=== PATIENT | female | born 1985 | race Caucasian/White ===

== ENCOUNTER 2016-11-05 13:34 | Emergency (ER) | payer MEDICAID, OTHER ==
[2016-11-05 13:47] VITALS: BP 135/69
--- NOTE | 2016-11-05 14:03 | UC ---
Cardiac HPI - HPI Summary HPI Summary: after beginning hydroxycut patient began sensation of heart beating fast in addition she drinks a few cups of coffee and a few energy drinks daily - History of Current Complaint Chief Complaint: UCChestPain Stated Complaint: CHEST PAIN Time Seen by Provider: 11/05/16 13:55 Hx Obtained From: Patient Hx Last Menstrual Period: Depo provera, quit depo a month ago. Hasn't had a period yet Onset/Duration: Sudden Onset, Lasting Days - 2 Timing: Intermittent Episodes Lasting: Initial Severity: Mild Current Severity: Mild Chest Pain Location: Diffuse - chest---no pain just feeling of heart beating fast Character: Fast, Pounding Aggravating Factor(s): Caffeine Alleviating Factor(s): Nothing Associated Signs & Symptoms: Positive: Negative - Allergy/Home Medications Allergies/Adverse Reactions: Allergies Allergy/AdvReac Type Severity Reaction Status Date / Time Codeine Allergy Itching Verified 11/05/16 13:47 Home Medications: Home Medications Aripiprazole Maintena (NF) [Abilify Maintena (NF)] 300 mg INJ MONTHLY 11/05/16 [ History Confirmed 11/05/16] PMH/Surg Hx/FS Hx/Imm Hx Previously Healthy: No Psychological History: Anxiety, Schizophrenia - Surgical History Surgical History: None - Family History Known Family History: Positive: Other - Schiziophrenia Negative: Respiratory Disease - Social History Occupation: Employed Full-time Lives: With Family Alcohol Use: None Substance Use Type: None, Excessive Caffeine Substance Use Comment - Amount & Last Used: history of marijuana use, energy drinks, coffee Smoking Status (MU): Light Every Day Tobacco Smoker Type: Cigarettes Length of Time of Smoking/Using Tobacco: off and on for 20 years Have You Smoked in the Last Year: Yes Household Exposure Type: Cigarettes - Immunization History Most Recent Influenza Vaccination: October, Most Recent Tetanus Shot: 2 years ago Most Recent Pneumonia Vaccination: none Review of Systems Constitutional: Negative Skin: Negative Eyes: Negative ENT: Negative Respiratory: Negative Cardiovascular: Palpitations Gastrointestinal: Negative Genitourinary: Negative Motor: Negative Neurovascular: Negative Musculoskeletal: Negative Neurological: Negative Psychological: Negative Is Patient Immunocompromised?: No All Other Systems Reviewed And Are Negative: Yes Physical Exam Triage Information Reviewed: Yes Appearance: Well-Appearing, No Pain Distress, Well-Nourished Vital Signs: Initial Vital Signs Temp 99.5 F 11/05/16 13:39 Pulse 85 11/05/16 13:39 Resp 18 11/05/16 13:39 BP 135/69 11/05/16 13:39 Pulse Ox 99 11/05/16 13:39 Vital Signs Reviewed: Yes Eye Exam: Normal Eyes: Positive: Conjunctiva Clear ENT Exam: Normal ENT: Positive: Normal ENT inspection, Hearing grossly normal. Negative: Nasal congestion, Nasal drainage, Trismus, Muffled/hoarse voice Dental Exam: Normal Neck exam: Normal Neck: Positive: Supple, Nontender, No Lymphadenopathy Respiratory Exam: Normal Respiratory: Positive: Chest non-tender, Lungs clear, Normal breath sounds, No respiratory distress, No accessory muscle use Cardiovascular Exam: Normal Cardiovascular: Positive: RRR, No Murmur, Pulses Normal, Brisk Capillary Refill Musculoskeletal Exam: Normal Musculoskeletal: Positive: Strength Intact, ROM Intact, No Edema Neurological Exam: Normal Neurological: Positive: Alert, Muscle Tone Normal Psychological Exam: Normal Skin Exam: Normal Diagnostics - EKG Cardiac Rate: NL Cardiac Rhythm: Sinus: Normal Ectopy: None ST Segment: Normal Re-Evaluation - Re-Evaluation First Eval Change: Improved - Symptoms calmed with reassurance - Assessment/Plan Course Of Treatment: Stop hydroxycut taper slowly off of caffiene, may use vistal prn follow with Dr. Carmona this week - Differential Diagnoses - Chest Pain Differential Diagnosis/HQI/PQRI: ACS, Angina, Chest Wall, Pulmonary Edema, Pulmonary Embolism, Other: - caffiene overdose - Clinical Impression Provider Diagnoses: Subjective tachycardia Discharge - Discharge Plan Condition: Stable Disposition: HOME Prescriptions: hydrOXYzine PAMOATE CAP* [Vistaril CAP*] 25 - 50 mg PO Q6H PRN #10 cap PRN Reason: Anxiety Patient Education Materials: Anxiety (ED), Tachycardia (ED) Referrals: Alberto Haji DO [Doctor of Osteopathy] - 3 Days
== END 2016-11-05 14:25 | disposition home or self-care (01) ==
LOC: UCEAST 13:34
DX: R00.0 Tachycardia, unspecified (principal); Z88.6 Allergy status to analgesic agent
CPT/HCPCS: 93005; 99212; G0463

== ENCOUNTER 2017-08-05 13:50 | Emergency (ER) | payer OTHER ==
[2017-08-05 14:08] VITALS: BP 117/68
--- NOTE | 2017-08-05 14:15 | UC ---
Abdominal Pain Female HPI - HPI Summary HPI Summary: 32 yo female presents with lower abdominal pain that began this morning. She vomited once this morning, but not since. Is eating and drinking ok, but does feel a little nauseous. No recent sick contacts that she knows of. Denies fever , chills, SOB, chest pain, diarrhea, constipation, dysuria, vaginal pain/ bleeding/discharge, or flank pain. - History of Current Complaint Hx Obtained From: Patient Hx Last Menstrual Period: 07/17/17 Onset/Duration: Sudden Onset Severity Initially: Mild Severity Currently: Mild Pain Intensity: 4 Pain Scale Used: 0-10 Numeric <Ankur Chin - Last Filed: 08/05/17 14:50> <Zeeshan Cardona - Last Filed: 08/06/17 07:27> - History of Current Complaint Chief Complaint: UCAbdominalPain Stated Complaint: ABDOMINAL PAIN Time Seen by Provider: 08/05/17 14:09 Allergies/Adverse Reactions: Allergies Allergy/AdvReac Type Severity Reaction Status Date / Time codeine Allergy Itching Verified 08/05/17 15:26 PMH/Surg Hx/FS Hx/Imm Hx Psychological History: Anxiety, Schizophrenia - Surgical History Surgical History: None - Family History Known Family History: Positive: Other - Schiziophrenia Negative: Respiratory Disease - Social History Lives: With Family Alcohol Use: None Substance Use Type: None Substance Use Comment - Amount & Last Used: history of marijuana use, energy drinks, coffee Smoking Status (MU): Light Every Day Tobacco Smoker Type: Cigarettes Amount Used/How Often: 5 sig/day Length of Time of Smoking/Using Tobacco: off and on for 20 years Have You Smoked in the Last Year: Yes When Did the Patient Quit Smoking/Using Tobacco: yesterday Household Exposure Type: Cigarettes - Immunization History Most Recent Influenza Vaccination: October, Most Recent Tetanus Shot: 2 years ago Most Recent Pneumonia Vaccination: none <Ankur Chin - Last Filed: 08/05/17 14:50> Review of Systems Constitutional: Negative Skin: Negative Respiratory: Negative Cardiovascular: Negative Gastrointestinal: Abdominal Pain Genitourinary: Negative Neurovascular: Negative Neurological: Negative Psychological: Negative All Other Systems Reviewed And Are Negative: Yes <Ankur Chin - Last Filed: 08/05/17 14:50> Physical Exam - Summary Physical Exam Summary: GENERAL: NAD. WDWN. No pain distress. SKIN: No rashes, sores, lesions, or open wounds. NECK: Supple. Nontender. No lymphadenopathy. CHEST: CTAB. No r/r/w. No accessory muscle use. Breathing comfortably and in no distress. CV: RRR. Without m/r/g. Pulses intact. Brisk cap refill. ABDOMEN: Mild TTP overlying lower abdomen. Soft. No distention or guarding. No CVA tenderness. Bowel sounds present NEURO: Alert. CN II-XII grossly intact. PSYCH: Age appropriate behavior. Triage Information Reviewed: Yes Vital Signs: Initial Vital Signs Temp 98.4 F 08/05/17 14:02 Pulse 69 08/05/17 14:02 Resp 16 08/05/17 14:02 BP 117/68 08/05/17 14:02 Pulse Ox 98 08/05/17 14:02 Laboratory Tests 08/05/17 08/05/17 14:15 14:18 POC Urine Color Yellow POC Urine Clarity Clear POC Urine pH 7.0 POC Ur Specif [place] 1.020 POC Urine Protein Negative POC Ur Glucose (UA) Negative POC Urine Ketones Negative POC Urine Blood Trace-intact A POC Urine Nitrite Negative POC Urine Bilirubin Negative POC Urine Urobilinogen 0.2 POC U Leukocyte Esteras Negative POC Ur Test Negative <Ankur Chin - Last Filed: 08/05/17 14:50> Vital Signs: Initial Vital Signs Temp 98.4 F 08/05/17 14:02 Pulse 69 08/05/17 14:02 Resp 16 08/05/17 14:02 BP 117/68 08/05/17 14:02 Pulse Ox 98 08/05/17 14:02 <Zeeshan Cardona - Last Filed: 08/06/17 07:27> Abd Pain Female Course/Dx - Course Course Of Treatment: UA negative for infection. negative. I am unsure the cause of her symptoms - it could be viral as it just started this morning. I had a conversation with the patient that for a more appropriate evaluation, she should be seen in the ED. She did not want to do this and would like to monitor her symptoms over the next day - she voiced that if worsens will go to ED. - Differential Dx/Diagnosis Provider Diagnoses: Abdominal pain <Ankur Chin - Last Filed: 08/05/17 14:50> Discharge - Sign-Out/Discharge Documenting (check all that apply): Discharge/Admit/Transfer - Billing Disposition and Condition Condition: STABLE Disposition: Home <Ankur Chin - Last Filed: 08/05/17 14:50> - Billing Disposition and Condition Condition: STABLE Disposition: Home <Zeeshan Cardona Carter - Last Filed: 08/06/17 07:27> - Discharge Plan Condition: Stable Disposition: HOME Patient Education Materials: Abdominal Pain (ED) Referrals: Alberto Haji DO [Primary Care Provider] - Additional Instructions: If you develop a fever, shortness of breath, chest pain, new or worsening symptoms - please call your PCP or go to the ED. 1) I am unsure as to the cause of your abdominal pain - I advise you go to the ER for further evaluation Per institutional requirements, I have reviewed the chart, however, I was not consulted specifically or made aware of this patient by the above midlevel provider. I did not personally evaluate, interact with , or disposition this patient. My shift ended and 14:30 and she was discharged after this
== END 2017-08-05 14:38 | disposition home or self-care (01) ==
LOC: UCEAST 13:50
DX: R10.30 Lower abdominal pain, unspecified (principal); R11.2 Nausea with vomiting, unspecified; F17.210 Nicotine dependence, cigarettes, uncomplicated; F20.9 Schizophrenia, unspecified; Z88.5 Allergy status to narcotic agent
CPT/HCPCS: 81003; 84702; 99212; G0463

== ENCOUNTER 2017-08-05 15:21 | Emergency (ER) | payer OTHER ==
[2017-08-05] MEDS ORDERED: Simethicone TAB* 80 MG TAB.CHEW PO ONE (19:54)
[2017-08-05] MEDS ORDERED: Lidocaine 2% VISCOUS* 15 ML UDC PO ONE (19:54)
[2017-08-05] MEDS ORDERED: NS 0.9% 1000 ML* 1,000 ML IV ONE (19:55)
--- NOTE | 2017-08-05 20:15 | RAD ---
INDICATION: Abdominal pain. Nausea. COMPARISON: None TECHNIQUE: Noncontrast axial source images were obtained from the hemidiaphragms to the symphysis pubis. This examination was ordered using a renal stone protocol which is performed without oral or intravenous contrast and therefore has inherent limitations when used to evaluate other intra-abdominal or intrapelvic pathology. Consider conventional contrast enhanced imaging if clinically. Lung bases: The lung bases are clear. Liver: The liver is normal in size. Noncontrast imaging shows no evidence of a hepatic mass or ductal dilatation. Gallbladder: There are no calcified gallstones. There is no evidence of wall thickening or pericholecystic fluid.. Spleen: The spleen is normal in size. The noncontrast CT appearance is normal. Pancreas: Noncontrast imaging shows no pancreatic mass or ductal dilitation. Adrenal glands: No masses are identified. Kidneys/Bladder: There is no evidence of nephrolithiasis or CT evidence of hydronephrosis. Noncontrast imaging shows no evidence of a renal mass. The bladder is unremarkable.. Adenopathy: There is no evidence of intraperitoneal or retroperitoneal adenopathy. Evaluation is limited without oral contrast. Fluid collections: There are no free or localized fluid collections. Vessels: The aorta and iliac vessels are normal in caliber. There are no significant atherosclerotic changes. The IVC appears normal Pelvic organs: The uterus and adnexa appear normal GI tract: Evaluation of the bowel is limited without oral contrast. The stomach, small bowel, and lower GI tract appear grossly normal. There are no obstructive findings. The appendix is visualized and appears normal. Soft tissues: No soft tissue abnormalities of the extraperitoneal abdomen or pelvis are identified. Osseous structures: There are no acute osseous findings. IMPRESSION: NO CT EVIDENCE OF UROLITHIASIS. NO ACUTE CT FINDINGS.
[2017-08-05 20:24] LABS: ABS Basophils 0 10^3/ul (0-0.2); ABS Eosinophils 0.1 10^3/ul (0-0.6); ABS Lymphocytes 1.9 10^3/ul (1.0-4.8); ABS Monocytes 0.7 10^3/ul (0-0.8); ABS Neutrophils 4.3 10^3/ul (1.5-7.7); ABS Nucleated RBC 0 10^3/ul; Eosinophil % 0.9 % (0-6); Hematocrit 37 % (35-47); Hemoglobin 12.8 g/dl (12.0-16.0); Lymphocyte % 27.7 % (25-47); Mean Corpuscular HGB Conc 35 g/dl (31-36); Mean Corpuscular Hemoglobin 31 pg (27-31); Mean Corpuscular Volume 90 fL (80-97); Mean Platelet Volume 9.1 um3 (7.4-10.4); Nucleated Red Blood Cells % 0.1; Platelet Count 169 10^3/ul (150-450); Red Blood Count 4.08 10^6/ul (4.00-5.40); Red Cell Distribution Width 12 % (10.5-15)
[2017-08-05 21:04] LABS: Urine Appearance Clear; Urine Blood Negative (Negative); Urine Color Colorless; Urine Ketones Negative (Negative); Urine Protein Negative (Negative); Urine Specific Gravity 1.001 (1.010-1.030); Urine Urobilinogen Negative (Negative)
[2017-08-05] MEDS ORDERED: cefTRIAXone VIAL(*) 1,000 MG VIAL IVPB ONE (21:12)
--- NOTE | 2017-08-05 21:24 | ED ---
Keke Jung Elizabeth, scribed for Sav Saunders MD on 08/05/17 at 1753 . Abdominal Pain/Female - HPI Summary HPI Summary: This patient is a 32 year old F presenting to [facility] with a chief complaint of lower abd pain since a few days ago. The patient notes that the pain does not radiate. The patient rates the pain 5/10 in severity. Symptoms aggravated by nothing. Symptoms alleviated by nothing. Patient reports vomiting, diarrhea, nausea, and chills. Patient denies dysuria, increased frequency, burning on urination, fever, and cough. The patient reports that she had a BM earlier today but that it was painful. The patient notes that she takes Abilify. - History of Current Complaint Chief Complaint: EDAbdPain Stated Complaint: ABD PAIN Hx Obtained From: Patient Hx Last Menstrual Period: 07/17/17 Onset/Duration: Gradual Onset, Lasting Days, Still Present Timing: Constant Severity Initially: Mild Severity Currently: Moderate Pain Intensity: 6 Pain Scale Used: 0-10 Numeric Location: Discrete At: RLQ, Discrete At: LLQ Radiates: No Aggravating Factor(s): Nothing Alleviating Factor(s): Nothing Associated Signs and Symptoms: Positive: Vomiting, Diarrhea. Negative: Constipation, Urinary Symptoms Allergies/Adverse Reactions: Allergies Allergy/AdvReac Type Severity Reaction Status Date / Time codeine Allergy Itching Verified 08/05/17 15:26 Home Medications: Home Medications Norgestimate-Ethinyl Estradiol [Trinessa Lo Tablet] 1 tab PO DAILY 08/05/17 [ History Confirmed 08/05/17] PMH/Surg Hx/FS Hx/Imm Hx Endocrine/Hematology History: Reports: Hx Anemia Denies: Hx Diabetes, Hx Thyroid Disease Cardiovascular History: Reports: Hx Syncope Denies: Hx Hypertension Respiratory History: Denies: Hx Asthma, Hx Chronic Obstructive Pulmonary Disease (COPD) GI History: Denies: Hx Ulcer Sensory History: Reports: Hx Contacts or Glasses Denies: Hx Cataracts, Hx Eye Injury, Hx Eye Prosthesis, Hx Glaucoma, Hx Legally Blind, Hx Macular Degeneration, Hx Vision Problem, Hx Deafness, Hx Hearing Aid, Hx Hearing Problem, Other Sensory Impairments Opthamlomology History: Reports: Hx Contacts or Glasses Denies: Hx Cataracts, Hx Eye Injury, Hx Eye Prosthesis, Hx Glaucoma, Hx Legally Blind, Hx Macular Degeneration, Hx Vision Problem, Other Sensory Impairments Psychiatric History: Reports: Hx Anxiety, Hx Attention Deficit Hyperactivity Disorder, Hx Depression, Hx Inpatient Treatment, Hx Community Mental Health Tx, Hx Schizophrenia, Hx Bipolar Disorder, Hx Substance Abuse, Other Psychiatric Issues/Disorders - bipolar, schizophrenia--no meds at present, followed by Dr. Montgomery Denies: Hx Eating Disorder, Hx Panic Disorder, Hx Post Traumatic Stress Disorder, Hx Suicide Attempt, Hx of Violent Episodes Against Others - Immunization History Date of Tetanus Vaccine: unknown Date of Influenza Vaccine: unk Infectious Disease History: No Infectious Disease History: Reports: History Other Infectious Disease - genital & oral herpes Denies: Hx Clostridium Difficile, Hx Hepatitis, Hx Human Immunodeficiency Virus (HIV), Hx of Known/Suspected MRSA, Hx Shingles, Hx Tuberculosis, Hx Known/ Suspected VRE, Hx Known/Suspected VRSA, Traveled Outside the [place] in Last 30 Days - Family History Known Family History: Positive: Other - Schiziophrenia Negative: Respiratory Disease Family History: LEVEL 5 CAVEAT: LIMITED FHx DUE TO PT CONDITION, UNRELIABLE NARRATOR. - Social History Alcohol Use: None Hx Substance Use: No Substance Use Type: Reports: None Substance Use Comment - Amount & Last Used: history of marijuana use, energy drinks, coffee Hx Tobacco Use: Yes Smoking Status (MU): Light Every Day Tobacco Smoker Type: Cigarettes Amount Used/How Often: 5 sig/day Length of Time of Smoking/Using Tobacco: off and on for 20 years Have You Smoked in the Last Year: Yes Review of Systems Negative: Fever Negative: Epistaxis Negative: Cough Positive: Abdominal Pain - epigastric, Vomiting, Diarrhea Negative: burning, dysuria, frequency All Other Systems Reviewed And Are Negative: Yes Physical Exam - Summary Physical Exam Summary: Appearance: Well-appearing, Well-nourished Skin: Warm Eyes: Normal ENT: Normal Neck: Supple, nontender Respiratory: Clear to auscultation Cardiovascular: Regular rate, regular rhythm. Normal S1, S2. Abdomen: Soft, moderate lower abd tenderness, mild CVA tenderness B/L Bowel sounds: hypoactive Musculoskeletal: Normal, Strength/ROM Intact Neurological: Normal, A&Ox3 Psychiatric: Normal General: No acute distress Triage Information Reviewed: Yes Vital Signs On Initial Exam: Initial Vitals Temp Pulse Resp BP Pulse Ox 98.5 F 65 16 118/65 100 08/05/17 15:24 08/05/17 15:24 08/05/17 15:24 08/05/17 15:24 08/05/17 15:24 Vital Signs Reviewed: Yes Diagnostics - Vital Signs Vital Signs Temp Pulse Resp BP Pulse Ox 08/05/17 15:24 98.5 F 65 16 118/65 100 - Laboratory Lab Results: Lab Results 08/05/17 08/05/17 08/05/17 Range/Units 20:09 20:09 20:52 WBC 7.0 (3.5-10.8) 10^3/ul RBC 4.08 (4.00-5.40) 10^6/ul Hgb 12.8 (12.0-16.0) g/dl Hct 37 (35-47) % MCV 90 (80-97) fL MCH 31 (27-31) pg MCHC 35 (31-36) g/dl RDW 12 (10.5-15) % Plt Count 169 (150-450) 10^3/ul MPV 9.1 (7.4-10.4) um3 Neut % (Auto) 61.3 (38-83) % Lymph % (Auto) 27.7 (25-47) % [place] % (Auto) 9.5 H (0-7) % Eos % (Auto) 0.9 (0-6) % Baso % (Auto) 0.6 (0-2) % Absolute Neuts (auto) 4.3 (1.5-7.7) 10^3/ul Absolute Lymphs (auto) 1.9 (1.0-4.8) 10^3/ul Absolute Monos (auto) 0.7 (0-0.8) 10^3/ul Absolute Eos (auto) 0.1 (0-0.6) 10^3/ul Absolute Basos (auto) 0 (0-0.2) 10^3/ul Absolute Nucleated RBC 0 10^3/ul Nucleated RBC % 0.1 Sodium 138 (135-145) mmol/L Potassium 3.7 (3.5-5.0) mmol/L Chloride 103 (101-111) mmol/L Carbon Dioxide 25 (22-32) mmol/L Anion Gap 10 (2-11) mmol/L BUN 9 (6-24) mg/dL Creatinine 0.94 (0.51-0.95) mg/dL Est GFR ( Amer) 83.5 (>60) Est GFR (Non-Af Amer) 69.0 (>60) BUN/Creatinine Ratio 9.6 (8-20) Glucose 89 (70-100) mg/dL Calcium 9.3 (8.6-10.3) mg/dL Total Bilirubin 0.30 (0.2-1.0) mg/dL AST 13 (13-39) U/L ALT 6 L (7-52) U/L Alkaline Phosphatase 49 (34-104) U/L C-Reactive Protein 15.65 H (<8.01) mg/L Total Protein 7.0 (6.4-8.9) g/dL Albumin 3.9 (3.2-5.2) g/dL Globulin 3.1 (2-4) g/dL Albumin/Globulin Ratio 1.3 (1-3) Lipase 16 (11.0-82.0) U/L Urine Color Colorless Urine Appearance Clear Urine pH 7.0 (5-9) Ur Specific [place] 1.001 L (1.010-1.030) Urine Protein Negative (Negative) Urine Ketones Negative (Negative) Urine Blood Negative (Negative) Urine Nitrate Negative (Negative) Urine Bilirubin Negative (Negative) Urine Urobilinogen Negative (Negative) Ur Leukocyte Esterase Negative (Negative) Urine Glucose Negative (Negative) Result Diagrams: 08/05/17 20:09 08/05/17 20:09 Lab Statement: Any lab studies that have been ordered have been reviewed, and results considered in the medical decision making process. - CT CT Abd/Pelvis CT Interpretation: No Acute Changes - IMPRESSION: NO CT EVIDENCE OF UROLITHIASIS. NO ACUTE CT FINDINGS. Dr. Saunders has reviewed this report. CT Interpretation Completed By: Radiologist Abdominal Pain Fem Course/Dx - Course Course Of Treatment: CT abd is neg but her UA from UC today reveals trace blood and elevated pH of 7- pt is NOT on her period and her UA here in ED shows elevated pH of 7.0, upon further questining pt DID have urinary frequency and not has faint B/L CVA tenderness. WIll tx for ascending UTI and cystitis - Diagnoses Provider Diagnoses: UTI (urinary tract infection), Acute cystitis Discharge - Sign-Out/Discharge Documenting (check all that apply): Discharge/Admit/Transfer - Discharge Plan Condition: Stable Disposition: HOME Discharge Disposition Comment: discharge home Prescriptions: Cefuroxime 500 MG(NF) 500 mg PO BID 7 Days #14 tab Patient Education Materials: Urinary Tract Infection in Women (ED) Referrals: Alberto Haji DO [Primary Care Provider] - Additional Instructions: Return to the emergency department with any new or worsening symptoms. - Billing Disposition and Condition Condition: STABLE Disposition: Home The documentation as recorded by the Keke pimentel Elizabeth accurately reflects the service I personally performed and the decisions made by Chip sin Euni, MD.
[2017-08-05 21:49] VITALS: BP 118/66
[2017-08-05] MEDS ORDERED: cefTRIAXone(*) 2 GM in NS 0.9% 100 ML* 100 ML IVPB ONE (22:00)
== END 2017-08-05 21:48 | disposition home or self-care (01) ==
LOC: ED 15:21
DX: N30.00 Acute cystitis without hematuria (principal); F17.210 Nicotine dependence, cigarettes, uncomplicated; Z88.5 Allergy status to narcotic agent
CPT/HCPCS: 36415; 74176; 80053; 81003; 83690; 85025; 86140; 96361; 96374; 99282; A9270-GY; J0696

== ENCOUNTER 2019-03-02 08:13 | Emergency (ER) | payer OTHER ==
--- NOTE | 2019-03-02 08:33 | ED ---
Respiratory - HPI Summary HPI Summary: 33-year-old female presents with 1 episode of hemoptysis today. She states there is trace blood in her sputum. Has been having a dry cough. She admits to occasional sore throat. She admits to occasional nausea vomiting. Denies any fevers. Admits occasional headache. Denies any abdominal pain. No diarrhea. No pain or swelling in muscles. Is not on control. No family history of blood clots. She is a smoker. She denies any drug use. No recent travel. No palpitations. She denies any chest pain. She admits to occasionally sob when she coughs. - History of Current Complaint Chief Complaint: EDUpperRespComplaint Stated Complaint: SCRATCHY THROAT/SPIT UP BLOOD PER PT Time Seen by Provider: 03/02/19 08:19 Pain Intensity: 5 - Allergy/Home Medications Allergies/Adverse Reactions: Allergies Allergy/AdvReac Type Severity Reaction Status Date / Time codeine Allergy Itching Verified 03/02/19 08:17 PMH/Surg Hx/FS Hx/Imm Hx Endocrine/Hematology History: Reports: Hx Anemia Denies: Hx Diabetes, Hx Thyroid Disease Cardiovascular History: Reports: Hx Syncope Denies: Hx Hypertension Respiratory History: Denies: Hx Asthma, Hx Chronic Obstructive Pulmonary Disease (COPD) GI History: Denies: Hx Ulcer Sensory History: Reports: Hx Contacts or Glasses Denies: Hx Cataracts, Hx Eye Injury, Hx Eye Prosthesis, Hx Glaucoma, Hx Legally Blind, Hx Macular Degeneration, Hx Vision Problem, Hx Deafness, Hx Hearing Aid, Hx Hearing Problem, Other Sensory Impairments Opthamlomology History: Reports: Hx Contacts or Glasses Denies: Hx Cataracts, Hx Eye Injury, Hx Eye Prosthesis, Hx Glaucoma, Hx Legally Blind, Hx Macular Degeneration, Hx Vision Problem, Other Sensory Impairments Psychiatric History: Reports: Hx Anxiety, Hx Attention Deficit Hyperactivity Disorder, Hx Depression, Hx Inpatient Treatment, Hx Community Mental Health Tx, Hx Schizophrenia, Hx Bipolar Disorder, Hx Substance Abuse, Other Psychiatric Issues/Disorders - bipolar, schizophrenia--no meds at present, followed by Dr. Montgomery Denies: Hx Eating Disorder, Hx Panic Disorder, Hx Post Traumatic Stress Disorder, Hx Suicide Attempt, Hx of Violent Episodes Against Others - Immunization History Date of Tetanus Vaccine: unknown Date of Influenza Vaccine: unk Infectious Disease History: No Infectious Disease History: Reports: History Other Infectious Disease - genital & oral herpes Denies: Hx Clostridium Difficile, Hx Hepatitis, Hx Human Immunodeficiency Virus (HIV), Hx of Known/Suspected MRSA, Hx Shingles, Hx Tuberculosis, Hx Known/ Suspected VRE, Hx Known/Suspected VRSA, Traveled Outside the [place] in Last 30 Days - Family History Known Family History: Positive: Other - Schiziophrenia Negative: Respiratory Disease Family History: LEVEL 5 CAVEAT: LIMITED FHx DUE TO PT CONDITION, UNRELIABLE NARRATOR. - Social History Alcohol Use: Rare Hx Substance Use: No Substance Use Type: Reports: None Substance Use Comment - Amount & Last Used: history of marijuana use, energy drinks, coffee Hx Tobacco Use: Yes Smoking Status (MU): Light Every Day Tobacco Smoker Type: Cigarettes Amount Used/How Often: 5 sig/day Length of Time of Smoking/Using Tobacco: off and on for 20 years Have You Smoked in the Last Year: Yes Review of Systems Negative: Fever Negative: Chest Pain Positive: Shortness Of Breath, Cough Negative: Abdominal Pain All Other Systems Reviewed And Are Negative: Yes Physical Exam Triage Information Reviewed: Yes Vital Signs On Initial Exam: Initial Vitals Temp Pulse Resp BP Pulse Ox 98.8 F 75 19 114/61 97 03/02/19 08:15 03/02/19 08:15 03/02/19 08:15 03/02/19 08:15 03/02/19 08:15 Vital Signs Reviewed: Yes Appearance: Positive: Well-Appearing Skin: Positive: Warm, Dry Head/Face: Positive: Normal Head/Face Inspection Eyes: Positive: Normal, EOMI, JOSE MANUEL, Conjunctiva Clear ENT: Positive: Pharyngeal erythema, TMs normal, Uvula midline, Other - soft palate symmetci. Negative: Tonsillar swelling, Tonsillar exudate, Trismus, Muffled voice Respiratory/Lung Sounds: Positive: Clear to Auscultation, Breath Sounds Present Cardiovascular: Positive: Normal, RRR Abdomen Description: Positive: Nontender, Soft Bowel Sounds: Positive: Present Musculoskeletal: Positive: Normal Neurological: Positive: Normal Psychiatric: Positive: Normal Procedures - Sedation Patient Received Moderate/Deep Sedation with Procedure: No Diagnostics - Vital Signs Vital Signs Temp Pulse Resp BP Pulse Ox 03/02/19 08:15 98.8 F 75 19 114/61 97 - Laboratory Lab Statement: Any lab studies that have been ordered have been reviewed, and results considered in the medical decision making process. - Radiology chest Radiology Interpretation Completed By: Radiologist Summary of Radiographic Findings: IMPRESSION: No acute cardiopulmonary process by radiograph Re-Evaluation - Re-Evaluation First Eval Re-Evaluation Time: 08:59 Change: Improved Comment: discussed results Disposition - Course Course Of Treatment: 33-year-old female presents with 1 episode of hemoptysis today. She states there is trace blood in her sputum. Has been having a dry cough. She admits to occasional sore throat. She admits to occasional nausea vomiting. Denies any fevers. Admits occasional headache. Denies any abdominal pain. No diarrhea. No pain or swelling in muscles. Is not on control. No family history of blood clots. No recent travel. No palpitations. On exam lungs clear to auscultation. Pharynx erythema. Flu negative. Chest x-ray shows no acute findings. likely viral. will treat supportatively. patient understand and agrees with plan. - Differential Dx - Cardiopulmonary Differential Diagnoses - Cardiopulmonary: Bronchitis, Influenza, Lower Resp Infection - Diagnoses Provider Diagnoses: Cough, Hemoptysis Discharge ED - Sign-Out/Discharge Documenting (check all that apply): Patient Departure - Discharge Plan Condition: Good Disposition: HOME Patient Education Materials: Acute Bronchitis (ED) Referrals: Alberto Haji DO [Primary Care Provider] - Additional Instructions: Use saline in the nose Use humidifier take tyenlol or ibuprofen every 6 hours for pain every 6 hours Follow up with primary care physician in 5 days Return to ED if develop any new or worsening symptoms - Billing Disposition and Condition Condition: GOOD Disposition: Home
[2019-03-02 08:50] LABS: Influenza A Molecular NEGATIVE (Negative); Influenza B Molecular NEGATIVE (Negative)
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
--- OUTSIDE RECORDS SUMMARY | 2019-03-02 08:55 | XMS REPORT ---
:1985 Author Name Jeremias Aranda Address [address] [address] Care Team Providers Name Role Phone Jeremias Aranda Unavailable Unavailable Mariusz Kelly Unavailable Unavailable Allergies, Adverse Reactions, Alerts Allergy Code CodeSystem Reaction Severity Status Substance RxNorm Medications Medication Medication Medication Start Route Dose Status Fill Code CodeSystem Date Instructions RxNorm NoCurrentDosage No NoCurrentFrequency Longer Active Aristada RxNorm 2019-0 IM 1,064 mg/3.9 mL No for 30 1-28 suspension,extended Longer day(s) rel syring Active Aristada RxNorm 2019-0 IM 1,064 mg/3.9 mL Active 3.9 ml as 5-13 3.9 directed for suspension,extended 60 day(s) rel syring as directed Hospital Discharge Medications Medication Direction Start Date Status Indications Fill Instuctions No Discharge Medication Problems Problem Name Code CodeSystem Start Date End Date Status SNOMED-CT 2018-05-03 Active SNOMED-CT 2018-05-17 Active Laboratory Values/Results Test Test Code Code System Actual Result Date LOINC Procedures Procedure Name Code CodeSystem Target Site Date of Procedure SNOMED-CT () 2018-05-21 SNOMED-CT () 2018-07-16 SNOMED-CT () 2018-07-23 SNOMED-CT () 2018-09-09 SNOMED-CT () 2018-10-21 SNOMED-CT () 2018-11-04 Encounter Diagnosis Code CodeSystem Description Date Finding Finding Code Status SNOMED-CT - SNOMED-CT Vital Signs Vitals Date Value Immunizations Vaccine Name Vaccine Code CodeSystem Date Status Social History Element Description Start Date End Date Code CodeSystem Description SNOMED-CT Hospital Discharge Instructions Reason For Referral
--- OUTSIDE RECORDS SUMMARY | 2019-03-02 08:55 | XMS REPORT ---
:1985 Author Organization [facility] Care Team Providers Name Role Phone CAMILLA SARGENT Primary Care Physician Unavailable Allergies, Adverse Reactions, Alerts Allergy Code CodeSystem Reaction Severity Criticality Status Start Substance Date Moderate Medications Medication Medication Medication Start Stop Route Dose Status Fill Code CodeSystem Date Date Instructions Aristada 9048949 RxNorm IM 1,064 active 3.9 ml as 5-13 11-09 mg/3.9 mL directed for 3.9 60 day(s) suspensio n,extende d rel syring as directed Aristada [id number] RxNorm IM 1,064 completed for 30 1-28 05-13 mg/3.9 mL day(s) suspensi on,extend ed rel syring Problems Problem Name Code CodeSystem Alternate Alternate Start End Status Narrative Code CodeSystem Date Date Nicotine 81295907 SNOMED-CT Active dependence, 4-05 unspecified, uncomplicated Relevant diagnostic tests/laboratory data Narrative No Information Procedures Procedure Code CodeSystem Target Date of Status Service Device Device Device Name Site Procedure Delivery Code Name UID Location Comprehensiv [id number] SNOMED-CT () 2018-05-21 complete Mental e medication 0 d Health- services, [place] [address], [place], [id number] Comprehensiv 138308 SNOMED-CT () 2018-07-16 complete Mental e medication 0 d Health- services, [place] [address], [place], [id number] Comprehensiv 284548 SNOMED-CT () 2018-09-09 complete Mental e medication 0 d Health- services, [place] [address], [place], [id number] Comprehensiv 074865 SNOMED-CT () 2018-11-04 complete Mental e medication 0 d Health- services, [place] [address] [place] [address], [id number] SNOMED-CT () 2019-02-20 complete Mental d Health- [facility] [address], [id number] Office [place] [id number] SNOMED-CT () 2018-07-23 complete Mental other 7 d Health- outpatient [place] visit for [address], [place] established [id number] patient, [id number] which requires at least 2 of these 3 garland components: An expanded problem focused history; An expanded problem focused examination; Medical decision making of low Office or 237170 SNOMED-CT () 2018-10-21 complete Mental other 6 d Health- outpatient [place] visit for [address], [place] [id number] patient, [id number] which requires at least 2 of these 3 garland components: A problem focused history; A problem focused examination; Straightforw vidya medical decision making. Counselin Office or 699947 SNOMED-CT () 2019-01-16 complete Mental other 6 d Health- outpatient [place] visit for [address], [place] [id number] patient, [id number] which requires at least 2 of these 3 garland components: A problem focused history; A problem focused examination; Straightforw vidya medical decision making. Counselin Encounters/Encounter Diagnoses Encounter Encounter Diagnosis Diagnosis Diagnosis Date of Service Name Code Code Name CodeSystem Diagnosis Delivery Location [facility] , , Vital Signs No Information Social History Element Description Description Start End Code CodeSystem AdditionalInfo Date Date SexAssignedAtBirth Female 1985-0 F AdministrativeGender 03-11 Hospital Discharge Instructions Reason For Referral Medical Equipment FDA Assessments
[2019-03-02 09:35] VITALS: BP 99/63
== END 2019-03-02 09:43 | disposition home or self-care (01) ==
LOC: ED 08:13
DX: R04.2 Hemoptysis (principal); J02.9 Acute pharyngitis, unspecified; R11.2 Nausea with vomiting, unspecified; R51 Headache; Z88.5 Allergy status to narcotic agent; F17.210 Nicotine dependence, cigarettes, uncomplicated
CPT/HCPCS: 71046; 99283

== ENCOUNTER 2019-03-31 20:13 | Emergency (ER) | payer OTHER ==
[2019-03-31 20:18] VITALS: BP 117/73
--- OUTSIDE RECORDS SUMMARY | 2019-03-31 20:27 | XMS REPORT | Continuity of Care Document ---
:1985 External Reference #:[id number] Author Name Alberto Haji D.O. Address [address] [place] [address] Care Team Providers Name Role Phone HCP given Care Team Information Logistics Management Specialist Unavailable Problems Active Problems Provider Date Traumatic [...] prior to being End: Unknown Smoker 05/27 Stopped again February 2019 ETOH Use Former Alcoholic none rarely uses, [...] years at a time Smoking Status Reviewed: 03/06/19 Light tobacco smoker Very few cigs per [...] Medications SIG Qnty Indications Ordering Provider Date Cefdinir 1 cap by mouth 20caps J01.00 Alberto Haji, 03/19/2019 300mg Capsules twice a day D.O. Aripiprazole Unknown 02/21/2019 10mg Tablets Resveratrol Once Daily Unknown 12/24/2017 Trinessa Lo daily as directed Unknown 06/27/2017 0.18/0.215/0.25 mg-25 mcg Tablets Multivitamin Adult 1 by mouth every Unknown 11/19/2016 day Tablets Vitamin D3 take one capsule 90caps E55.9 Alberto Haji, 06/22/2014 5000Unit by mouth every D.O. Capsules day or 7 tablets once a week Valacyclovir HCL 1 tab daily Unknown 1gm Tablets History Medications Amoxicillin/Clavulanate 1 by mouth 20tabs J01.00 Raissa, 03/06/2019 - Potassium twice a day Alberto D.OJeovany 03/16/2019 875-125mg Tablets Azithromycin take 2 6tabs J15.9 Raissa, 10/23/2018 - 250mg Tablets tablets by Alberto D.OJeovany 10/28/2018 mouth one time on the first day then take 1 tablet by mouth daily for 4 days Abilifmatt Obtains once Unknown 10/22/2018 - every 2 03/05/2019 months Immunizations CPT Code Status Date Vaccine Lot # [id number] Given 11/07/2018 Influenza Virus Vaccine, Quadrivalent, Split, [id number] Preservative Free [id number] Given 11/06/2017 Influenza Virus Vaccine, Quadrivalent, Split, [id number] Preservative Free 85077 Given 11/20/2016 Influenza Virus Vaccine, Quadrivalent, Split, [id number] Preservative Free 09217 Given 10/23/2014 Flu, Split Virus 3Yrs Vital Signs Date Vital Result Comment 03/19/2019 5:03pm BP Systolic 120 mmHg BP Diastolic 64 mmHg Heart Rate 83 /min O2 % BldC Oximetry 99 % Body Temperature 98.6 F Weight 156.00 lb 03/06/2019 10:55am BP Systolic 114 mmHg BP Diastolic 64 mmHg Heart Rate 59 /min O2 % BldC Oximetry 97 % Weight 151.00 lb Results Test Acquired Date Facility Test Result H/L Range Note Influenza A & B 03/02/2019 [facility] Flu AB (SEE NOTE) 1 Request [phone] Disclaimer Influenza A Molecular NEGATIVE Negative Influenza B Molecular NEGATIVE Negative 2 Quantiferon-TB Gold 01/20/2019 [facility] QuantiferonTb Negative Negative 3 Plus [phone] Gold Plus Result TB1 Ag minus Nil Result 0.03 IU/mL TB2 Ag minus Nil Result 0.03 IU/mL Mitogen minus Nil Result 18.46 IU/mL Nil Result 0.05 IU/mL CBC Auto Diff 01/20/2019 [facility] White Blood 8.1 10^3/uL Normal 3.5-10.8 [phone] Count Red Blood Count 4.20 10^6/uL Normal [...] Blood Cells % 0.0 Laboratory test 01/20/2019 [facility] C Reactive 1.40 mg/L Normal < 8.01 finding [phone] Protein 1 Suboptimal collection technique may reduce sensitivity of test. Refer to the [facility] Test Catalog for collection information: [email or web address] As with all diagnostic procedures, the laboratory results obtained should be used in conjunction with other clinical information available to the physician, including confirmation by another method, as applicable. 2 Automotive Warranty Administrator: [id number] 3 M. tuberculosis infection NOT likely Procedures Description No Information Available Medical Devices Description No Information Available Encounters Type Date Location Provider Dx Diagnosis Office Visit 03/06/2019 Main Office Alberto Haji J01.00 Acute maxillary 11:00a D.O. sinusitis, unspecified F25.9 Schizoaffective disorder, unspecified R05 Cough F41.9 Anxiety disorder, unspecified Office Visit 01/20/2019 11:20a Main Office Armaan Partida R09.3 Abnormal sputum R05 Cough Z71.6 Tobacco abuse counseling Office Visit 11/07/2018 2:00p Main Office Divya Pardo Z00.00 Encntr for general P.A. adult medical exam w/o abnormal findings Z23 Encounter for immunization Z41.8 Encntr for oth proc for purpose [facility] F17.210 Nicotine dependence, cigarettes, uncomplicated F25.9 Schizoaffective disorder, unspecified Z68.27 Body mass index (BMI) 27.0-27.9, adult Office Visit 10/23/2018 4:30p Main Office Alberto Haji, J15.9 Unspecified D.O. bacterial pneumonia E66.3 Overweight Z68.27 Body mass index (BMI) 27.0-27.9, adult Assessments Date Code Description Provider 03/19/2019 J01.00 Acute maxillary sinusitis, unspecified SopAlberto cramer D.O. 03/19/2019 F25.9 Schizoaffective disorder, unspecified SopAlberto cramer, D.O. 03/19/2019 R05 Cough Alberto Haji D.O. 03/19/2019 F41.9 Anxiety disorder, unspecified SopAlberto cramer, D.O. 03/06/2019 J01.00 Acute maxillary sinusitis, unspecified SopAlberto cramer, D.O. 03/06/2019 F25.9 Schizoaffective disorder, unspecified Sopchak, Alberto, D.O. 03/06/2019 R05 Cough Alberto Haji D.O. 03/06/2019 F41.9 Anxiety disorder, unspecified Alberto Haji D.O. 01/20/2019 R09.3 Abnormal sputum Divya Pardo, P.A. 01/20/2019 R05 Cough Divya Pardo, P.A. 01/20/2019 Z71.6 Tobacco abuse counseling Divya Pardo, P.A. 11/07/2018 Z00.00 Encounter for general adult medical Divya Pardo P.AJeovany examination without abnormal findings 11/07/2018 Z23 Encounter for immunization Divya Pardo P.A. 11/07/2018 Z41.8 Encounter for other procedures for purposes Divya Pardo P.A. other than remedying health state 11/07/2018 F17.210 Nicotine dependence, cigarettes, Divya Pardo P.A. uncomplicated 11/07/2018 F25.9 Schizoaffective disorder, unspecified Divya Pardo, P.A. 11/07/2018 Z68.27 Body mass index (BMI) 27.0-27.9, adult Divya Pardo P.A. 10/23/2018 J15.9 Unspecified bacterial pneumonia Alberto Haji D.O. 10/23/2018 E66.3 Overweight Alberto Haji D.O. 10/23/2018 Z68.27 Body mass index (BMI) 27.0-27.9, adult Alberto Haji D.O. Plan of Treatment Future Appointment(s):11/12/2019 1:30 pm - Alberto Haji D.O. at Main Qglzyy9703/19/2019 - Alberto Haji D.O.J01.00 Acute maxillary sinusitis, unspecifiedNew Medication:Cefdinir 300 mg - 1 cap by mouth twice a dayF25.9 Schizoaffective disorder, fjmjfetoargT68 SqvhrE75.9 Anxiety disorder, unspecifiedFollow up:as scheduled Functional Status Description No Information Available Mental Status Description No Information Available Referrals Description No Information Available
--- OUTSIDE RECORDS SUMMARY | 2019-03-31 20:27 | XMS REPORT | Continuity of Care Document ---
:1985 External Reference #:[id number] Author Name Albetro Haji D.O. 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 875-125mg Tablets Aripiprazole Unknown 02/21/2019 10mg Tablets Resveratrol Once [...] tablet by mouth daily for 4 days Nancymatt Obtains once Unknown 10/22/2018 - every 2 months 03/05/2019 Immunizations CPT Code Status Date Vaccine Lot # [id number] Given 11/07/2018 Influenza Virus Vaccine, Quadrivalent, Split, [id number] Preservative Free [id number] Given 11/06/2017 Influenza Virus Vaccine, Quadrivalent, Split, [id number] Preservative Free 07568 Given 11/20/2016 Influenza Virus Vaccine, Quadrivalent, Split, [id number] Preservative Free 09566 Given 10/23/2014 Flu, Split Virus 3Yrs Vital Signs Date Vital Result Comment 03/06/2019 10:55am BP Systolic 114 mmHg BP Diastolic 64 mmHg Heart Rate 59 /min O2 % BldC Oximetry 97 % Weight 151.00 lb 01/20/2019 11:14am BP Systolic 110 mmHg BP Diastolic 58 mmHg Heart Rate 66 /min O2 % BldC Oximetry 98 % Weight 153.00 lb Results Test Acquired Date Facility Test Result H/L Range Note Influenza A & B 03/02/2019 [facility] Flu AB (SEE NOTE) 1 Request [phone] Disclaimer Influenza A Molecular NEGATIVE Negative Influenza B Molecular NEGATIVE Negative 2 Quantiferon-TB Gold 01/20/2019 [facility] QuantiferonTb Negative Negative 3 Plus [phone] Gold Plus Result TB1 Ag minus Nil Result 0.03 IU/mL TB2 Ag minus Nil Result 0.03 IU/mL Mitogen minus Nil Result 18.46 IU/mL Nil Result 0.05 IU/mL CBC Auto Diff 01/20/2019 [facility] White Blood 8.1 10^3/uL Normal 3.5-10.8 [phone] Count Red Blood Count 4.20 10^6/uL Normal [...] Blood Cells % 0.0 Laboratory test 01/20/2019 [facility] C Reactive 1.40 mg/L Normal < 8.01 finding [phone] Protein 1 Suboptimal collection technique may reduce sensitivity of test. Refer to the [facility] Test Catalog for collection information: [email or web address] As with all diagnostic procedures, the laboratory results obtained should be used in conjunction with other clinical information available to the physician, including confirmation by another method, as applicable. 2 Lay Out Carpenter: [id number] 3 M. tuberculosis infection NOT likely Procedures Description No Information Available Medical Devices Description No Information Available Encounters Type Date Location Provider Dx Diagnosis Office Visit 03/06/2019 Main Office Alberto Hjai, J01.00 Acute maxillary 11:00a D.O. sinusitis, unspecified F25.9 Schizoaffective disorder, unspecified R05 Cough F41.9 Anxiety disorder, unspecified Office Visit 01/20/2019 11:20a Main Office Divya Pardo, P.A. R09.3 Abnormal sputum R05 Cough Z71.6 Tobacco abuse counseling Office Visit 11/07/2018 2:00p Main Office Divya Pardo Z00.00 Encntr for general P.A. adult medical exam w/o abnormal findings Z23 Encounter for immunization Z41.8 [facility] F17.210 Nicotine dependence, cigarettes, uncomplicated F25.9 Schizoaffective disorder, unspecified Z68.27 Body mass index (BMI) 27.0-27.9, adult Office Visit 10/23/2018 4:30p Main Office Alberto Haji, J15.9 Unspecified D.O. bacterial pneumonia E66.3 Overweight Z68.27 Body mass index (BMI) 27.0-27.9, adult Assessments Date Code Description Provider 03/06/2019 J01.00 Acute maxillary sinusitis, unspecified SopDeana crameron, D.O. 03/06/2019 F25.9 Schizoaffective disorder, unspecified SopkarliekDeanaon, D.O. 03/06/2019 R05 Cough Alberto Haji, D.O. 03/06/2019 F41.9 Anxiety disorder, unspecified SopkarliekDeanaon, D.O. 01/20/2019 R09.3 Abnormal sputum Divya Pardo, P.A. 01/20/2019 R05 Cough Divya Pardo, P.A. 01/20/2019 Z71.6 Tobacco abuse counseling Divya Pardo, P.A. 11/07/2018 Z00.00 Encounter for general adult medical Divya Pardo P.A. examination without abnormal findings 11/07/2018 Z23 Encounter for immunization Divya [place], P.A. 11/07/2018 Z41.8 Encounter for other procedures for purposes Armaan Partida other than remedying health state 11/07/2018 F17.210 Nicotine dependence, cigarettes, Divya Char, P.A. uncomplicated 11/07/2018 F25.9 Schizoaffective disorder, unspecified Divya Pardo P.A. 11/07/2018 Z68.27 Body mass index (BMI) 27.0-27.9, adult Ty Partida.A. 10/23/2018 J15.9 Unspecified bacterial pneumonia Alberto Haji D.O. 10/23/2018 E66.3 Overweight Alberto Haji D.O. 10/23/2018 Z68.27 Body mass index (BMI) 27.0-27.9, adult Alberto Haji D.O. Plan of Treatment Future Appointment(s):11/12/2019 1:30 pm - Alberto Haji D.O. at Main Qhbbho5903/06/2019 - Alberto Haji D.O.J01.00 Acute maxillary sinusitis, unspecifiedNew Medication:Amoxicillin/Clavulanate Potassium 875-125 mg - 1 by mouth twice a dayFollow up:Use Afrin or Similar over the counter nasal spray for NO more than 3 days. 15min after using nasal decongestant (Afrin or similar ) use a neti pot or Nasal Saline Flush (aslo available over the counter at any pharmacy) use distilled or boiled and cooled water to mix the saline solution. Use the perscription flonase after the nasal saline flush or netipot. Continue to use neti pot/ nasal saline flush daily unless it is painful or you no longer have symptoms. Use Flonase for at least 1 week at a time and until symptoms are resolved.F25.9 Schizoaffective disorder, zoxulwtetrrF39 LgwrqW53.9 Anxiety disorder, unspecifiedFollow up:as scheduled Functional Status Description No Information Available Mental Status Description No Information Available Referrals Description No Information Available
--- OUTSIDE RECORDS SUMMARY | 2019-03-31 20:27 | XMS REPORT ---
:1985 Author Organization [facility] Care Team Providers Name Role Phone CAMILLA SARGENT Primary Care Physician Unavailable Allergies, Adverse Reactions, Alerts Allergy Code CodeSystem Reaction Severity Criticality Status Start Substance Date Moderate Medications Medication Medication Medication Start Stop Route Dose Status Fill Code CodeSystem Date Date Instructions Aristada 4431999 RxNorm IM 1,064 completed 3.9 ml as 5-13 12-05 mg/3.9 mL directed for 3.9 60 day(s) suspensio n,extende d rel syring as directed Aristada 3175841 RxNorm IM 1,064 completed for 30 1-28 05-13 mg/3.9 mL day(s) suspensi on,extend ed rel syring aripiprazole 437961 RxNorm 2018-02 oral 10 mg 1 active Take 1 tablet 2-05 tablet by mouth once once a a day for 30 day day(s) Problems Problem Name Code CodeSystem Alternate Alternate Start End Status Narrative Code CodeSystem Date Date Nicotine 03688780 SNOMED-CT Active dependence, 4-05 unspecified, uncomplicated Relevant diagnostic tests/laboratory data Narrative No Information Procedures Procedure Code CodeSystem Target Date of Status Service Device Device Device Name Site Procedure Delivery Code Name UID Location Comprehensiv 612445 SNOMED-CT () 2018-09-09 complete Mental e medication 0 d Health- services, [place] per 15 [facility] minutes [address] [place], [place], [id number] [id number] Office or 198430 SNOMED-CT () 2018-07-23 complete Mental other 7 d Health- outpatient [place] visit for [facility] the [address] [facility], [facility], of an [place], established [id number] patient, [id number] which requires at least 2 of these 3 [place] components: An expanded problem focused history; An expanded problem focused examination; Medical decision making of low SNOMED-CT () 2019-03-17 complete Mental d Health- [place] [address], [phone] Comprehensiv 960872 SNOMED-CT () 2018-05-21 complete Mental e medication 0 d Health- services, [place] per [address] [place] [address] [place] [address], [phone] [id number] Comprehensiv 995801 SNOMED-CT () 2018-07-16 complete Mental e medication 0 d Health- services, [place] [address] [place] [address], [phone] Office [place] 223581 SNOMED-CT () 2018-10-21 complete Mental other 6 d Health- outpatient [place] visit for [address], [facility], established [phone] patient, [phone] which requires at least 2 of these 3 [place] components: A problem focused history; A problem focused examination; Straightforw vidya medical decision making. Counselin SNOMED-CT () 2019-02-20 complete Mental d Health- [place], [phone] Office or 380397 SNOMED-CT () 2019-01-16 complete Mental other 6 d Health- outpatient [place] visit for [address], [facility], established [phone] patient, [phone] which requires at least 2 of these 3 [place] components: A problem focused history; A problem focused examination; Straightforw vidya medical decision making. Counselin Comprehensiv 461146 SNOMED-CT () 2018-11-04 complete Mental e medication 0 d Health- services, [place] per [address] [place] [address], [phone] Encounters/Encounter Diagnoses Encounter Encounter Diagnosis Diagnosis Diagnosis Date of Service Name Code Code Name CodeSystem Diagnosis Delivery Location SNOMED-CT [facility] , , Vital Signs No Information Social History Element Description Description Start End Code CodeSystem AdditionalInfo Date Date SexAssignedAtBirth Female 1986-0 F AdministrativeGender 28 Hospital Discharge Instructions Reason For Referral Medical Equipment FDA Assessments
--- OUTSIDE RECORDS SUMMARY | 2019-03-31 20:27 | XMS REPORT | Continuity of Care Document ---
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 Problems Active Problems Provider Date Traumatic [...] tablet by mouth daily for 4 days Jean Paul Obtains once Unknown 10/22/2018 - every 2 months 03/05/2019 Immunizations CPT Code Status Date Vaccine Lot # [id number] Given 11/07/2018 Influenza Virus Vaccine, Quadrivalent, Split, [id number] Preservative Free 91793 Given 11/06/2017 Influenza Virus Vaccine, Quadrivalent, Split, [id number] Preservative Free 21492 Given 11/20/2016 Influenza Virus Vaccine, Quadrivalent, Split, [id number] Preservative Free 84840 Given 10/23/2014 Flu, Split Virus 3Yrs Vital [...] Range Note Influenza A & B 03/02/[address] [facility] Flu AB (SEE NOTE) 1 Request [phone] Disclaimer Influenza A Molecular NEGATIVE Negative Influenza B Molecular NEGATIVE Negative 2 Quantiferon-TB Gold 01/20/[address] [facility] QuantiferonTb Negative Negative 3 Plus [phone] Gold Plus Result TB1 Ag minus Nil Result 0.03 IU/mL TB2 Ag minus Nil Result 0.03 IU/mL Mitogen minus Nil Result 18.46 IU/mL Nil Result 0.05 IU/mL CBC Auto Diff 01/20/[address] [facility] White Blood 8.1 10^3/uL Normal 3.5-10.8 [phone] Count Red Blood Count 4.20 10^6/uL Normal [...] Blood Cells % 0.0 Laboratory test 01/20/[address] [facility] C Reactive 1.40 mg/L Normal < 8.01 finding [phone] Protein 1 Suboptimal collection technique may reduce sensitivity of test. Refer to the [facility] Test Catalog for collection information: [email or web address] As with all diagnostic procedures, the laboratory results obtained should be used in conjunction with other clinical information available to the physician, including confirmation by another method, as applicable. 2 Clinical Review Nurse: [id number] 3 M. tuberculosis infection NOT likely Procedures Description No Information Available Medical Devices Description No Information Available Encounters Type Date Location Provider Dx Diagnosis Office Visit 03/06/2019 Main Office Alberto Haji, J01.00 Acute maxillary 11:00a D.O. sinusitis, unspecified [...] Z41.8 Encntr for oth proc for purpose [facility] than [facility] F17.210 Nicotine dependence, cigarettes, uncomplicated F25.9 Schizoaffective disorder, unspecified Z68.27 Body mass index (BMI) 27.0-27.9, adult Office Visit 10/23/2018 4:30p Main Office Alberto Haji, J15.9 Unspecified D.O. bacterial pneumonia E66.3 Overweight Z68.27 Body mass index (BMI) 27.0-27.9, adult Assessments Date Code Description Provider 03/06/2019 J01.00 Acute maxillary sinusitis, unspecified Alberto Haji, D.O. 03/06/2019 F25.9 Schizoaffective disorder, unspecified SopAlberto cramer, D.O. 03/06/2019 R05 Cough Alberto Haji, D.O. 03/06/2019 F41.9 Anxiety disorder, unspecified SopAlberto cramer, D.O. 01/20/2019 R09.3 Abnormal sputum Divya Pardo, P.A. 01/20/2019 R05 Cough Divya Pardo, P.A. 01/20/2019 Z71.6 Tobacco abuse counseling Divya Pardo P.A. 11/07/2018 Z00.00 Encounter for general adult medical Diyva Pardo P.A. examination without abnormal findings 11/07/2018 Z23 Encounter for immunization Divya Pardo P.A. 11/07/2018 Z41.8 Encounter for other procedures for purposes Sneha Partida. other than remedying health state 11/07/2018 F17.210 Nicotine dependence, cigarettes, Divya Pardo, P.A. uncomplicated 11/07/2018 F25.9 Schizoaffective disorder, unspecified Divya Pardo P.A. 11/07/2018 Z68.27 Body mass index (BMI) 27.0-27.9, adult Divya Pardo P.A. 10/23/2018 J15.9 Unspecified bacterial pneumonia Alberto Haji D.O. 10/23/2018 E66.3 Overweight Alberto Haji D.O. 10/23/2018 Z68.27 Body mass index (BMI) 27.0-27.9, adult Alberto Haji D.O. Plan of Treatment Future Appointment(s):11/12/2019 1:30 pm - Alberto Haji D.O. at Main Xtnrku1603/06/2019 - Alberto Haji D.O.J01.00 Acute maxillary sinusitis, [...] and until symptoms are resolved.F25.9 Schizoaffective disorder, xjlbngulfvjY69 CzugrC93.9 Anxiety disorder, unspecifiedFollow up:as scheduled Functional Status Description No Information Available Mental Status Description No Information Available Referrals Description No Information Available
--- OUTSIDE RECORDS SUMMARY | 2019-03-31 20:27 | XMS REPORT | Continuity of Care Document ---
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 Onset: 05/19/2014 Schizophrenia Simple In Remission Alebrto Haji D.O. Onset: 05/19/2014 Vitamin D deficiency [...] CPT Code Status Date Vaccine Lot # [id number] Given 11/07/2018 Influenza Virus Vaccine, Quadrivalent, Split, [id number] Preservative Free 51283 Given 11/06/2017 Influenza Virus Vaccine, Quadrivalent, Split, [id number] Preservative Free 29951 Given 11/20/2016 Influenza Virus Vaccine, Quadrivalent, Split, [id number] Preservative Free 00653 Given 10/23/2014 Flu, Split Virus 3Yrs Vital [...] Range Note Influenza A & B 03/02/2019 [facility] Flu AB (SEE NOTE) 1 Request [phone] Disclaimer Influenza A Molecular NEGATIVE Negative Influenza B Molecular NEGATIVE Negative 2 Quantiferon-TB Gold 01/20/2019 [facility] QuantiferonTb Negative Negative 3 Plus [phone] Gold Plus Result TB1 Ag minus Nil Result 0.03 IU/mL TB2 Ag minus Nil Result 0.03 IU/mL Mitogen minus Nil Result 18.46 IU/mL Nil Result 0.05 IU/mL CBC Auto Diff 01/20/2019 [facility] White Blood 8.1 10^3/uL Normal 3.5-10.8 [phone] Count Red Blood Count 4.20 10^6/uL Normal [...] Blood Cells % 0.0 Laboratory test 01/20/2019 [facility] C Reactive 1.40 mg/L Normal < 8.01 finding [phone] Protein 1 Suboptimal collection technique may reduce sensitivity of test. Refer to the [facility] Test Catalog for collection information: [email or web address] As with all diagnostic procedures, the laboratory results obtained should be used in conjunction with other clinical information available to the physician, including confirmation by another method, as applicable. 2 Frame And Scrap Crusher: [id number] 3 M. tuberculosis infection NOT likely Procedures [...] for oth proc for purpose oth than [facility] F17.210 Nicotine dependence, cigarettes, uncomplicated F25.9 Schizoaffective [...] pm - Alberto Haji D.O. at Main Fimvnp6703/06/2019 - Alberto Haji D.O.J01.00 Acute maxillary sinusitis, [...] and until symptoms are resolved.F25.9 Schizoaffective disorder, ithvlpdnzhgZ91 NjxqiT65.9 Anxiety disorder, unspecifiedFollow up:as scheduled Functional Status Description No Information Available Mental Status Description No Information Available Referrals Description No Information Available
--- NOTE | 2019-03-31 20:37 | ED ---
Throat Pain/Nasal Congestion - HPI Summary HPI Summary: 34 year old presents with sore throat for the past week. She was diagnosed with bronchitis and was getting better. She started developing a sore throat and was placed on a course of amoxicillin. She finished amoxicillin 3 days ago. She is concerned that sore throat has gotten worse since then. She denies any chest pain or shortness breath. No cough. No difficulty swallowing. No sinus congestion. No abdominal pain. No nausea vomiting. - History of Current Complaint Chief Complaint: EDThroatPain Time Seen by Provider: 03/31/19 20:31 - Allergies/Home Medications Allergies/Adverse Reactions: Allergies Allergy/AdvReac Type Severity Reaction Status Date / Time codeine Allergy Itching Verified 03/02/19 08:17 Home Medications: Home Medications ARIPiprazole [Aripiprazole] 10 mg PO DAILY 03/31/19 [History Confirmed 03/31/19] PMH/Surg Hx/FS Hx/Imm Hx Endocrine/Hematology History: Reports: Hx Anemia Denies: Hx Diabetes, Hx Thyroid Disease Cardiovascular History: Reports: Hx Syncope Denies: Hx Hypertension Respiratory History: Denies: Hx Asthma, Hx Chronic Obstructive Pulmonary Disease (COPD) GI History: Denies: Hx Ulcer Sensory History: Reports: Hx Contacts or Glasses Denies: Hx Cataracts, Hx Eye Injury, Hx Eye Prosthesis, Hx Glaucoma, Hx Legally Blind, Hx Macular Degeneration, Hx Vision Problem, Hx Deafness, Hx Hearing Aid, Hx Hearing Problem, Other Sensory Impairments Opthamlomology History: Reports: Hx Contacts or Glasses Denies: Hx Cataracts, Hx Eye Injury, Hx Eye Prosthesis, Hx Glaucoma, Hx Legally Blind, Hx Macular Degeneration, Hx Vision Problem, Other Sensory Impairments Psychiatric History: Reports: Hx Anxiety, Hx Attention Deficit Hyperactivity Disorder, Hx Depression, Hx Inpatient Treatment, Hx Community Mental Health Tx, Hx Schizophrenia, Hx Bipolar Disorder, Hx Substance Abuse, Other Psychiatric Issues/Disorders - bipolar, schizophrenia--no meds at present, followed by Dr. Montgomery Denies: Hx Eating Disorder, Hx Panic Disorder, Hx Post Traumatic Stress Disorder, Hx Suicide Attempt, Hx of Violent Episodes Against Others - Immunization History Date of Tetanus Vaccine: unknown Date of Influenza Vaccine: unk Infectious Disease History: No Infectious Disease History: Reports: History Other Infectious Disease - genital & oral herpes Denies: Hx Clostridium Difficile, Hx Hepatitis, Hx Human Immunodeficiency Virus (HIV), Hx of Known/Suspected MRSA, Hx Shingles, Hx Tuberculosis, Hx Known/ Suspected VRE, Hx Known/Suspected VRSA, Traveled Outside the [place] in Last 30 Days - Family History Known Family History: Positive: Other - Schiziophrenia Negative: Respiratory Disease Family History: LEVEL 5 CAVEAT: LIMITED FHx DUE TO PT CONDITION, UNRELIABLE NARRATOR. - Social History Alcohol Use: Rare Hx Substance Use: No Substance Use Type: Reports: None Substance Use Comment - Amount & Last Used: history of marijuana use, energy drinks, coffee Hx Tobacco Use: Yes Smoking Status (MU): Light Every Day Tobacco Smoker Type: Cigarettes Amount Used/How Often: 5 sig/day Length of Time of Smoking/Using Tobacco: off and on for 20 years Have You Smoked in the Last Year: Yes Review of Systems Negative: Fever Positive: Sore Throat Negative: Chest Pain Negative: Shortness Of Breath All Other Systems Reviewed And Are Negative: Yes Physical Exam Triage Information Reviewed: Yes Vital Signs On Initial Exam: Initial Vitals Temp Pulse Resp BP Pulse Ox 97.6 F 66 15 117/73 98 03/31/19 20:15 03/31/19 20:15 03/31/19 20:15 03/31/19 20:15 03/31/19 20:15 Vital Signs Reviewed: Yes Appearance: Positive: Well-Appearing Skin: Positive: Warm, Dry Head/Face: Positive: Normal Head/Face Inspection Eyes: Positive: Normal, EOMI, JOSE MANUEL, Conjunctiva Clear ENT: Positive: TMs normal, Uvula midline, Other - soft palate symetric, petechiae to throat. Negative: Tonsillar swelling, Tonsillar exudate, Trismus, Muffled voice Respiratory/Lung Sounds: Positive: Clear to Auscultation, Breath Sounds Present Cardiovascular: Positive: Normal, RRR Musculoskeletal: Positive: Normal Neurological: Positive: Normal Psychiatric: Positive: Normal Procedures - Sedation Patient Received Moderate/Deep Sedation with Procedure: No Diagnostics - Vital Signs Vital Signs Temp Pulse Resp BP Pulse Ox 03/31/19 20:15 97.6 F 66 15 117/73 98 - Laboratory Lab Statement: Any lab studies that have been ordered have been reviewed, and results considered in the medical decision making process. EENT Course/Dx - Course Course Of Treatment: 34 year old presents with sore throat for the past week. She was diagnosed with bronchitis and was getting better. She started developing a sore throat and was placed on a course of amoxicillin. She finished amoxicillin 3 days ago. She is concerned that sore throat has gotten worse since then. She denies any chest pain or shortness breath. No cough. No difficulty swallowing. No sinus congestion. No abdominal pain. No nausea vomiting. On exam pharynx mildly erythematous with petechiae noted. Uvula midline. Soft palate symmetric. Strep negative. Discuss likely viral. sent throat culture. Told to take Tylenol or ibuprofen for her symptoms. Patient understands and agrees plan. - Differential Diagnoses Differential Diagnoses: Pharyngitis, Tonsilitis, URI/Bronchitis - Diagnoses Provider Diagnoses: Pharyngitis Discharge ED - Sign-Out/Discharge Documenting (check all that apply): Patient Departure - Discharge Plan Condition: Good Disposition: AGAINST MEDICAL ADVICE Patient Education Materials: Pharyngitis (ED) Referrals: Alberto Haji DO [Primary Care Provider] - Additional Instructions: Take Tylenol or ibuprofen for pain every 6 hours Can gargle salt water Can use cough drops or products such as cloraseptic spray follow up with primary Return to ED if develop any new or worsening symptoms - Billing Disposition and Condition Condition: GOOD Disposition: Against Medical Advice
[2019-03-31 20:58] LABS: Rapid Strep Molecular Negative (Negative)
== END 2019-03-31 21:19 | disposition left against medical advice (07) ==
LOC: ED 20:13
DX: J02.9 Acute pharyngitis, unspecified (principal); R55 Syncope and collapse; D64.9 Anemia, unspecified; F17.210 Nicotine dependence, cigarettes, uncomplicated
CPT/HCPCS: 87070; 87651; 99282